=== PATIENT | female | born 1985 | race Caucasian/White ===

== ENCOUNTER → 2020-08-08 16:40 | Outpatient (CLI) | payer BC, SELFPAY ==
[2020-08-08 20:39] LABS: Urine N gonorrhoeae NOT DETECTED
[2020-08-08 20:40] LABS: Urine Chlamydia NOT DETECTED
== END ==
PROVIDERS: Visit Provider Specialist
DX: Z34.82 Encounter for supervision of other normal pregnancy, second trimester (principal); Z3A.19 19 weeks gestation of pregnancy
CPT/HCPCS: 87491; 87591

== ENCOUNTER 2020-08-23 17:59 | Outpatient (CLI) | payer BC, SELFPAY ==
--- NOTE | 2020-08-23 20:19 | P.TNLD_ITS ---
Visit Information Visit Information Date of evaluation: 08/23/20 Primary OB Provider: Anastasia Meek On-call OB Provider: Mariana Scherer Reason for Evaluation: Yes non-stress test Comments/Additional reasons for admission: This patient is a 35-year-old para 2 at 21 weeks gestation with a newly diagnosed marginal anterior placenta previa and spotting, presenting for monitoring on tocometry and discussion of options. The patient continues to have no further bleeding and is otherwise feeling well with good movement. status in clinic was reassuring. Vital Signs Vital Signs: S [facility] Medical History Acute stomach ulcer AMA (advanced maternal age) multigravida 35+ Heart palpitations (~2016) Kidney stones (~2015) anxiety (spontaneous vaginal delivery) (~04/07/16) (spontaneous vaginal delivery) (~11/11/18) Surgical History Hx of cholecystectomy (~1985) Status post hysteroscopic polypectomy (~2014) Family History Mother Asthma Infertility Triplet Father No problems noted. 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 No contractions on toco. Diagnosis, Plan/Disposition Plan/Disposition Plan: This patient has no contractions on tocometry, and a long and closed cervix on evaluation in the office. We discussed the risk of worsening hemorrhage with danger of maternal , though odds of this are low given her clinical course and provoking event in the setting of a marginal previa. The patient and her partner strongly desire discharge home, and vocalized understanding of the risks and benefits. All questions were answered. We discussed pelvic rest, avoidance of lifting over 10 lbs, and avoidance of strenuous physical activity though not strict bedrest. The patient and her partner vocalized understanding, and will follow up with our office on Wednesday to discuss follow up. OB Disposition: home
== END 2020-08-23 19:05 | disposition home or self-care (01) ==
LOC: OB 08-26 08:06
PROVIDERS: Referring Provider Obstetrics & Gynecology; Visit Provider Obstetrics & Gynecology
DX: O44.32 Partial placenta previa with hemorrhage, second trimester (principal); O09.522 Supervision of elderly multigravida, second trimester; Z3A.21 21 weeks gestation of pregnancy
CPT/HCPCS: 59025; G0378; G0379